=== PATIENT | female | born 2000 | race Two or more races ===

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

== ENCOUNTER 2018-02-22 19:02 | Emergency (ER) | payer BC ==
[~2018-02-22] VITALS: Ht 157.5 cm; Wt 70.8 kg
[~2018-02-22 19:02] MED LIST changes: +ONDA4TAB10 PO; +PHEN100T82 PO; +SULF1TAB24 PO
--- NOTE | 2018-02-22 19:04 | ED.ADGEN ---
Past History Past Medical History: No Pertinent History, Other Past Surgical History: No Surgical History Smoking: Non-smoker Alcohol Use: None Drug Use: None Adult General Chief Complaint Chief Complaint ". 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 but when I woke up this morning I didn't feel very well and the abdomen pain has gotten worse all day.. '" Pt HPI HPI Patient is a 17 year old female who presents with above hx and complaints abd. pain. Her brother got sick from eating the sushi on Wednesday. Patient states the pain is somewhat generalized. Nothing makes it better. Has been nauseated all day. No active vomiting or diarrhea. Patient denies any specific trauma other than lifting. Patient has been gravid 1 term 1. No recent travel. No history immunosuppression. Normally follows with Dr. Soto. Patient currently rates her pain as 5 out of 10. Review of Systems Review of Systems Constitutional: Denies fever or chills [] Eyes: Denies change in visual acuity, redness, or eye pain [] HENT: Denies nasal congestion or sore throat [] Respiratory: Denies cough or shortness of breath [] Cardiovascular: No additional information not addressed in HPI [] GI: Complaints of abdominal pain, nausea,. vomiting, bloody stools or diarrhea [ ] : Denies dysuria or hematuria [] Musculoskeletal: Denies back pain or joint pain [] Integument: Denies rash or skin lesions [] Neurologic: Denies headache, focal weakness or sensory changes [] Endocrine: Denies polyuria or polydipsia [] All other systems were reviewed and found to be within normal limits, except as documented in this note. Family History Family History Brother got sick after eating sushi on Wednesday Current Medications Current Medications Current Medications Medications (Trade) Dose Ordered Sig/Daisy Start Time Stop Time Status Last Admin Dose Admin Famotidine (Pepcid Vial) 20 mg 1X ONCE 02/22/18 19:30 02/22/18 19:31 DC 02/22/18 19:43 20 MG Ketorolac Tromethamine (Toradol 30mg Vial) 30 mg 1X ONCE 02/22/18 19:45 02/22/18 19:46 DC Lactated Ringer's 1,000 ml @ 1,000 mls/hr Q1H 02/22/18 19:13 02/22/18 20:12 DC 02/22/18 19:43 1,000 MLS/HR Ondansetron HCl (Zofran) 8 mg 1X ONCE 02/22/18 19:30 02/22/18 19:31 DC 02/22/18 19:44 8 MG See nursing for home meds Allergies Allergies Allergies Coded Allergies Type Severity Reaction Last Updated Verified codeine Allergy Intermediate 02/22/18 Yes latex Allergy Intermediate 02/22/18 Yes Physical Exam Physical Exam Constitutional: Well developed, well nourished,in acute distress, rnon-toxic appearance. [] HENT: Normocephalic, atraumatic, bilateral external ears normal, oropharynx moist, no oral exudates, nose normal. [] Eyes: PERRLA, EOMI, conjunctiva normal, no discharge. [] Neck: Normal range of motion, no tenderness, supple, no stridor. [] Cardiovascular:Heart rate regular rhythm, no murmur [] Lungs & Thorax: Bilateral breath sounds clear to auscultation [] Abdomen: Bowel sounds hyperactive, soft, and generalized tenderness, no masses, no pulsatile masses. [] No true rebound Skin: Warm, dry, no erythema, no rash. [] Back: No tenderness, no CVA tenderness. [] Extremities: No tenderness, no cyanosis, no clubbing, ROM intact, no edema. [] No true psoas or obturator sign. Neurologic: Alert and oriented X 3, normal motor function, normal sensory function, no focal deficits noted. [] Psychologic: Affect normal, judgement normal, mood normal. [] Current Patient Data Vital Signs Vital Signs Date Time Temp Pulse Resp B/P (MAP) Pulse Ox O2 Delivery O2 Flow Rate FiO2 02/22/18 22:10 79 18 154/91 (112) 99 Room Air 02/22/18 19:05 98.6 Lab Results Laboratory Tests Test 02/22/18 19:05 02/22/18 19:25 02/22/18 19:30 02/22/18 20:03 Urine Collection Type Unknown Urine Color Yellow Urine Clarity Clear Urine pH 7.5 Urine Specific [place] 1.020 Urine Protein Neg (NEG-TRACE) Urine Glucose (UA) Neg mg/dL (NEG) Urine Ketones (Stick) Neg mg/dL (NEG) Urine Blood Neg (NEG) Urine Nitrite Neg (NEG) Urine Bilirubin Neg (NEG) Urine Urobilinogen Dipstick 0.2 mg/dL (0.2 mg/dL) Urine Leukocyte Esterase Neg (NEG) Urine RBC Occ /HPF (0-2) Urine WBC Occ /HPF (0-4) Urine Squamous Epithelial Cells Few /LPF Urine Amorphous Sediment Present /HPF Urine Bacteria 0 /HPF (0-FEW) Urine Mucus Slight /LPF Urine Opiates Screen Neg (NEG) Urine Methadone Screen Neg (NEG) Urine Barbiturates Neg (NEG) Urine Phencyclidine Screen Neg (NEG) Urine Amphetamine/Methamphetamine Neg (NEG) Urine Benzodiazepines Screen Neg (NEG) Urine Cocaine Screen Neg (NEG) Urine Cannabinoids Screen Neg (NEG) Urine Ethyl Alcohol Neg (NEG) POC Urine HCG, Qualitative hcg negative (Negative) White Blood Count 6.0 x10^3/uL (4.0-11.0) Red Blood Count 4.59 x10^6/uL (3.50-5.40) Hemoglobin 12.9 g/dL (12.0-15.5) Hematocrit 39.7 % (36.0-47.0) Mean Corpuscular Volume 86 fL (79-100) Mean Corpuscular Hemoglobin 28 pg (25-35) Mean Corpuscular Hemoglobin Concent 33 g/dL (31-37) Red Cell Distribution Width 17.4 % (11.5-14.5) H Platelet Count 327 x10^3/uL (140-400) Neutrophils (%) (Auto) 58 % (31-73) Lymphocytes (%) (Auto) 33 % (24-48) Monocytes (%) (Auto) 7 % (0-9) Eosinophils (%) (Auto) 1 % (0-3) Basophils (%) (Auto) 1 % (0-3) Neutrophils # (Auto) 3.5 x10^3uL (1.8-7.7) Lymphocytes # (Auto) 2.0 x10^3/uL (1.0-4.8) Monocytes # (Auto) 0.4 x10^3/uL (0.0-1.1) Eosinophils # (Auto) 0.1 x10^3/uL (0.0-0.7) Basophils # (Auto) 0.1 x10^3/uL (0.0-0.2) Prothrombin Time 10.4 SEC (9.4-11.4) Prothrombin Time INR 1.0 (0.9-1.1) PTT 27 SEC (23-33) Sodium Level 139 mmol/L (136-145) Potassium Level 3.7 mmol/L (3.5-5.1) Chloride Level 106 mmol/L (98-107) Carbon Dioxide Level 27 mmol/L (21-32) Anion Gap 6 (6-14) Blood Urea Nitrogen 6 mg/dL (7-20) L Creatinine 0.6 mg/dL (0.6-1.0) Estimated GFR (Cockcroft-Gault) 128.8 Glucose Level 97 mg/dL (70-99) Calcium Level 9.1 mg/dL (8.5-10.1) Total Bilirubin 0.3 mg/dL (0.2-1.0) Direct Bilirubin 0.1 mg/dL (0.0-0.2) Aspartate Amino Transferase (AST) 11 U/L (15-37) L Alanine Aminotransferase (ALT) 16 U/L (14-59) Alkaline Phosphatase 63 U/L (46-116) Total Protein 7.0 g/dL (6.4-8.2) Albumin 3.6 g/dL (3.4-5.0) Amylase Level 61 U/L (25-115) Lipase 100 U/L (73-393) EKG EKG [] Radiology/Procedures Radiology/Procedures My interpretation of abdomen film shows no acute cardiopulmonary findings on chest portion. No free air under the diaphragm. Nonobstructive bowel gas pattern..[] Course & Med Decision Making Course & Med Decision Making Pertinent Labs and Imaging studies reviewed. (See chart for details). Today on a clear fluid diet only for the next 2 days. No solids. No milk products. Must allow bowel rest. May take Tylenol and ibuprofen for discomfort. May take Zofran 8 mg up 4 times a day for nausea and vomiting. Follow-up primary care. Any localized symptoms must return for reexam. Return if any concerns. Follow-up primary care. [] Final Impression Final Impression 1. Abdomen pain[] 2. Possible food poisoning- by history Dragon Disclaimer Dragon Disclaimer This electronic medical record was generated, in whole or in part, using a voice recognition dictation system. NEEL SALAZAR MD Feb 22, 2018 19:04
[2018-02-22] MEDS ORDERED: IV RINGERS SOLUTION,LACTATED 1,000 ML IV SCH (19:13)
[2018-02-22] MEDS ORDERED: FAMOTIDINE 20 MG/2 ML VIAL IVP ONE (19:30)
[2018-02-22] MEDS ORDERED: ONDANSETRON PF 4 MG/2 ML VIAL. IV ONE (19:30)
[2018-02-22] MEDS ORDERED: KETOROLAC 30 MG/ML VIAL. IV ONE (19:45)
[2018-02-22 19:48] LABS: BASO # 0.1 x10^3/uL (0.0-0.2); BASO % 1 % (0-3); EOS # 0.1 x10^3/uL (0.0-0.7); EOS % 1 % (0-3); HEMATOCRIT 39.7 % (36.0-47.0); HEMOGLOBIN 12.9 g/dL (12.0-15.5); LYMPH % 33 % (24-48); MEAN CORPUSCULAR HEMOGLOBIN 28 pg (25-35); MEAN CORPUSCULAR HGB CONC 33 g/dL (31-37); MEAN CORPUSCULAR VOLUME 86 fL (79-100); MONO # 0.4 x10^3/uL (0.0-1.1); MONO % 7 % (0-9); NEUT # 3.5 x10^3uL (1.8-7.7); NEUT % 58 % (31-73); PLATELET COUNT 327 x10^3/uL (140-400); RED BLOOD COUNT 4.59 x10^6/uL (3.50-5.40); RED CELL DISTRIBUTION WIDTH 17.4 % (11.5-14.5)
[2018-02-22 19:54] LABS: AMPHETAMINE/METHAMPHETAMINE NEG (NEG); BARBITURATES NEG (NEG); BENZODIAZEPINES NEG (NEG); CANNABINOIDS NEG (NEG); COCAINE NEG (NEG); METHADONE NEG (NEG); OPIATES NEG (NEG); PHENCYCLIDINE NEG (NEG)
[2018-02-22 19:55] LABS: BILIRUBIN,URINE NEG (NEG); CLARITY,URINE CLEAR; COLOR,URINE YELLOW; GLUCOSE,URINE NEG (NEG)
[2018-02-22 19:56] LABS: AMORPHOUS SEDIMENT,UR PRESENT /HPF; BACTERIA,URINE 0 /HPF (0-FEW); NITRITE,URINE NEG (NEG); RBC,URINE OCC /HPF (0-2); SQUAMOUS EPITHELIAL CELL,UR FEW /LPF; UROBILINOGEN,URINE 0.2 mg/dL (0.2 mg/dL); WBC,URINE OCC /HPF (0-4)
[2018-02-22 20:32] LABS: ALBUMIN 3.6 g/dL (3.4-5.0); CALCIUM 9.1 mg/dL (8.5-10.1); CREATININE 0.6 mg/dL (0.6-1.0); DIRECT BILIRUBIN 0.1 mg/dL (0.0-0.2); GFR 128.8; POTASSIUM 3.7 mmol/L (3.5-5.1); TOTAL BILIRUBIN 0.3 mg/dL (0.2-1.0)
[2018-02-22] MEDS ORDERED: ONDA8TAB12 PO (21:44)
[2018-02-22 22:10] VITALS: BP 154/91
--- NOTE | 2018-02-22 22:47 | RAD ---
Acute abdominal series to include a PA chest radiograph 02/22/2018 Clinical History: Left-sided abdominal pain. A PA digital radiograph of the chest was obtained. Supine and erect AP digital radiographs of the abdomen/pelvis were obtained. Comparison is made to a CT scan of the abdomen and pelvis dated 01/18/2017. The cardiac and mediastinal silhouettes are within normal limits in size and configuration. No pulmonary infiltrate is seen. No pleural effusion or pneumothorax is noted. The abdominal bowel gas pattern is nonobstructive. There is no evidence of free air. No radiopaque calculus is seen. The osseous structures are grossly intact. Impression: Negative study. Electronically signed by: Ricky Massey MD (02/22/2018 10:42 PM) [facility]
== END 2018-02-22 22:25 | disposition home or self-care (01) ==
LOC: ER 19:02
DX: R10.84 Generalized abdominal pain (principal); R11.2 Nausea with vomiting, unspecified; Z88.5 Allergy status to narcotic agent; Z91.040 Latex allergy status
CPT/HCPCS: 36415; 74022; 80048; 80076; 80307; 81001; 81025; 82150; 83690; 85025; 85610; 85730; 96361; 96374; 96375; 99285; J2405; J7120; S0028; G0479

== ENCOUNTER 2019-04-12 03:07 | Emergency (ER) | payer BC ==
[~2019-04-12] VITALS: Ht 157.5 cm; Wt 56.7 kg
[~2019-04-12 03:07] MED LIST changes: +ONDA8TAB12 PO
[2019-04-12] MEDS ORDERED: ONDANSETRON PF 4 MG/2 ML VIAL. IVP ONE ×2 (03:30→04:00)
[2019-04-12] MEDS ORDERED: IV NORMAL SALINE 1,000ML 1,000 ML IV ONE ×4 (03:45→06:30)
[2019-04-12] MEDS ORDERED: FAMOTIDINE 20 MG/2 ML VIAL IVP ONE (04:00)
[2019-04-12 04:02] LABS: BASO % 0 % (0-3); EOS % 0 % (0-3); HEMATOCRIT 41.2 % (36.0-47.0); HEMOGLOBIN 13.6 g/dL (12.0-15.5); LYMPH # 0.7 x10^3/uL (1.0-4.8); LYMPH % 6 % (24-48); MEAN CORPUSCULAR HEMOGLOBIN 30 pg (25-35); MEAN CORPUSCULAR HGB CONC 33 g/dL (31-37); MEAN CORPUSCULAR VOLUME 90 fL (79-100); MONO # 0.3 x10^3/uL (0.0-1.1); MONO % 2 % (0-9); NEUT # 11.8 x10^3uL (1.8-7.7); NEUT % 92 % (31-73); PLATELET COUNT 296 x10^3/uL (140-400); RED BLOOD COUNT 4.59 x10^6/uL (3.50-5.40); RED CELL DISTRIBUTION WIDTH 14.3 % (11.5-14.5); WHITE BLOOD COUNT 12.9 x10^3/uL (4.0-11.0)
[2019-04-12 04:19] LABS: ALBUMIN 3.8 g/dL (3.4-5.0); ALBUMIN/GLOBULIN RATIO 0.8 (1.0-1.7); CREATININE 0.8 mg/dL (0.6-1.0); GFR 90.5; POTASSIUM 3.2 mmol/L (3.5-5.1); TOTAL BILIRUBIN 0.5 mg/dL (0.2-1.0); TOTAL PROTEIN 8.4 g/dL (6.4-8.2)
[2019-04-12] MEDS ORDERED: METOCLOPRAMIDE HCL 10 MG/2 ML VIAL. IVP ONE (05:15)
--- NOTE | 2019-04-12 05:26 | PHYS DOC ---
Past History Past Medical History: No Pertinent History, Other Past Surgical History: No Surgical History Smoking: Non-smoker Alcohol Use: None Drug Use: None Adult General Chief Complaint Chief Complaint: VOMITING IN HPI HPI Patient is a 21 G2, P1 and esterase 11 weeks gestation female who presents with intermittent daily emesis 3 days with inability to tolerate oral intake despite Phenergan suppositories and Zofran. Reports 15 pound weight loss since onset of . Patient reports diffuse epigastric pain worse with vomiting. No hematemesis coffee-ground emesis or bilious emesis. No other acute symptoms or complaints. Patient has plans to establish with Dr. Kapoor for the current [] Review of Systems Review of Systems Review symptoms as per history of present illness. All other systems were reviewed and found to be within normal limits, except as documented in this note. Current Medications Current Medications Current Medications Medications (Trade) Dose Ordered Sig/Daisy Start Time Stop Time Status Last Admin Dose Admin Famotidine (Pepcid Vial) 20 mg 1X ONCE 04/12/19 04:00 04/12/19 04:38 DC 04/12/19 04:00 20 MG Metoclopramide HCl (Reglan Vial) 10 mg 1X ONCE 04/12/19 05:15 04/12/19 05:16 UNV Ondansetron HCl (Zofran) 4 mg 1X ONCE 04/12/19 04:00 04/12/19 04:38 DC Sodium Chloride 1,000 ml @ 1,000 mls/hr 1X ONCE 04/12/19 04:00 04/12/19 04:59 DC 04/12/19 04:00 1,000 MLS/HR Allergies Allergies Allergies Coded Allergies Type Severity Reaction Last Updated Verified codeine Allergy Intermediate 02/22/18 Yes latex Allergy Intermediate 02/22/18 Yes Physical Exam Physical Exam Constitutional: Well developed, well nourished, no acute distress. [] HENT: Normocephalic, atraumatic, bilateral external ears normal, oropharynx moist, no oral exudates, nose normal. [] Eyes: PERRLA, EOMI, conjunctiva normal, no discharge. [] Neck: Normal range of motion, no tenderness.. [] Cardiovascular:Heart rate regular rhythm, no murmur [] Lungs & Thorax: Bilateral breath sounds clear to auscultation [] Abdomen: Bowel sounds normal, soft, epigastric pain/tenderness.[] Skin: Warm, dry, no erythema, no rash. [] Back: No tenderness, no CVA tenderness. [] Extremities: No tenderness, no cyanosis, no clubbing, ROM intact. [] Neurologic: Alert and oriented X 3, normal motor function, normal sensory function, no focal deficits noted. [] Psychologic: Affect normal, judgement normal, mood normal. [] Current Patient Data Lab Results Laboratory Tests Test 04/12/19 03:25 White Blood Count 12.9 x10^3/uL (4.0-11.0) H Red Blood Count 4.59 x10^6/uL (3.50-5.40) Hemoglobin 13.6 g/dL (12.0-15.5) Hematocrit 41.2 % (36.0-47.0) Mean Corpuscular Volume 90 fL (79-100) Mean Corpuscular Hemoglobin 30 pg (25-35) Mean Corpuscular Hemoglobin Concent 33 g/dL (31-37) Red Cell Distribution Width 14.3 % (11.5-14.5) Platelet Count 296 x10^3/uL (140-400) Neutrophils (%) (Auto) 92 % (31-73) H Lymphocytes (%) (Auto) 6 % (24-48) L Monocytes (%) (Auto) 2 % (0-9) Eosinophils (%) (Auto) 0 % (0-3) Basophils (%) (Auto) 0 % (0-3) Neutrophils # (Auto) 11.8 x10^3uL (1.8-7.7) H Lymphocytes # (Auto) 0.7 x10^3/uL (1.0-4.8) L Monocytes # (Auto) 0.3 x10^3/uL (0.0-1.1) Eosinophils # (Auto) 0.0 x10^3/uL (0.0-0.7) Basophils # (Auto) 0.0 x10^3/uL (0.0-0.2) Sodium Level 139 mmol/L (136-145) Potassium Level 3.2 mmol/L (3.5-5.1) L Chloride Level 101 mmol/L (98-107) Carbon Dioxide Level 20 mmol/L (21-32) L Anion Gap 18 (6-14) H Blood Urea Nitrogen 10 mg/dL (7-20) Creatinine 0.8 mg/dL (0.6-1.0) Estimated GFR (Cockcroft-Gault) 90.5 BUN/Creatinine Ratio 13 (6-20) Glucose Level 177 mg/dL (70-99) H Calcium Level 10.0 mg/dL (8.5-10.1) Total Bilirubin 0.5 mg/dL (0.2-1.0) Aspartate Amino Transferase (AST) 20 U/L (15-37) Alanine Aminotransferase (ALT) 20 U/L (14-59) Alkaline Phosphatase 48 U/L (46-116) Total Protein 8.4 g/dL (6.4-8.2) H Albumin 3.8 g/dL (3.4-5.0) Albumin/Globulin Ratio 0.8 (1.0-1.7) L Lipase 58 U/L (73-393) L EKG EKG [] Radiology/Procedures Radiology/Procedures [] Course & Med Decision Making Course & Med Decision Making Pertinent Labs and Imaging studies reviewed. (See chart for details) [Multiple units of IV fluids, Dilaudid, Benadryl and Zofran without relief of symptoms. Patient remains tachycardic with acidosis on chemistry and hypokalemia. [facility] transfer [facility] Dragon Disclaimer Dragon Disclaimer This electronic medical record was generated, in whole or in part, using a voice recognition dictation system. Departure Departure: Impression: Primary Impression: Hyperemesis gravidarum Disposition: 02 XFER SHT-TRM HOSP Condition: STABLE Referrals: RABIA MICHAEL DO (PCP) JANNETTE HICKS DO Apr 12, 2019 05:25
[2019-04-12] MEDS ORDERED: diphenhydrAMINE 50 MG/ML VIAL IVP ONE (05:30)
[2019-04-12] MEDS ORDERED: IV DEXTROSE 5% - 0.9 % NACL 1,000 ML IV ONE (06:00)
[2019-04-12 07:18] LABS: BACTERIA,URINE FEW /HPF (0-FEW); BILIRUBIN,URINE NEG (NEG); CLARITY,URINE HAZY; COLOR,URINE YELLOW; GLUCOSE,URINE 500 mg/dL (NEG); NITRITE,URINE NEG (NEG); SQUAMOUS EPITHELIAL CELL,UR FEW /LPF; UROBILINOGEN,URINE 0.2 mg/dL (0.2 mg/dL)
[2019-04-12 07:28] VITALS: BP 114/72
== END 2019-04-12 08:05 | disposition short-term general hospital (02) ==
LOC: ER 03:07
DX: O21.0 Mild hyperemesis gravidarum (principal); Z3A.11 11 weeks gestation of pregnancy; Z88.5 Allergy status to narcotic agent; Z91.040 Latex allergy status
CPT/HCPCS: 36415; 80053; 81001; 83690; 85025; 96361; 96374; 96375; 99285; J1200; J2405; J2765; J3490; J7042; J7030

== ENCOUNTER → 2019-06-19 | Outpatient (CLI) | payer BC ==
--- NOTE | 2019-06-19 17:10 | RAD ---
EXAM: OBSTETRIC ULTRASOUND. HISTORY: Size/date discrepancy. COMPARISON: None. FINDINGS: Sonographic evaluation of the uterus, fetus and maternal pelvis was performed. There is a single fetus in vertex presentation. heart rate is 128 bpm. Estimated gestational age based on measurements is 21 weeks 0 days. Head circumference, biparietal diameter, abdominal circumference and femur length are commensurate. Estimated weight is 399 g, at 11 percentile. The placenta is posterior. There is no evidence of placenta previa. Amniotic fluid volume appears normal with amniotic fluid index 15.2 cm. The cervix is closed and measures at least 4 cm. There is no evidence of hydrocephalus. The posterior fossa is unremarkable. The nasal bone appears normal. The heart is four-chamber. The right and left ventricular outflow tracts are visualized. The cord insertion appears normal. Images of the kidneys reveal no hydronephrosis. The stomach and bladder are visualized. The cord is three-vessel. The extremities are unremarkable. Nose/lip morphology appears normal. The spine is not well visualized given position. No clear defects are seen. The maternal adnexa are obscured by positioning currently. IMPRESSION: 1. Single fetus in vertex presentation. heart rate 128 bpm. Estimated gestational age based on measurements 21 weeks 0 days. 2. The spine is not well visualized given position currently. No clear anomalies are seen. Electronically signed by: Cathy Lacey MD (06/19/2019 5:07 PM) [facility]
== END | disposition home or self-care (01) ==
LOC: US 11:14
PROVIDERS: ATTEND Obstetrics & Gynecology
DX: O26.842 Uterine size-date discrepancy, second trimester (principal); Z3A.21 21 weeks gestation of pregnancy
CPT/HCPCS: 76805

== ENCOUNTER 2021-05-21 14:00 | Emergency (ER) | payer OTHER ==
[~2021-05-21] VITALS: Ht 154.9 cm; Wt 64.3 kg
--- NOTE | 2021-05-21 15:19 | PHYS DOC ---
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 Patient is complaining of nausea and vomiting in that has been going on for a couple days. She is not specific on how many days. She states yesterday she vo mited hard and ruptured her right eardrum. She states she was seen at [facility] where they did not do anything for her but they started on amoxicillin and gave her promethazine per rectum. She states she has used the promethazine today but has been unable to take her amoxicillin. She is requesting some IV fluids, IV nausea medicine and IV antibiotics for her ear infection. Denies any abdominal pain. Denies any vaginal bleeding. She states she used to see MANAGER CONTRACT and but he is currently not taking any OB patient, he is only taking TECHNICAL SYSTEMS ARCHITECT patients. She states she has moderate pain to the right ear worse on vomiting. She states she has history of hyperemesis gravidarum and eventually ending up with a "pump" for nausea and vomiting (SHANTAL GARRISON PRESS OPERATOR HELPER) Review of Systems Review of Systems Constitutional: Denies fever or chills [] Eyes: Denies change in visual acuity, redness, or eye pain [] HENT: Reports right ear pain denies nasal congestion or sore throat [] Respiratory: Denies cough or shortness of breath [] Cardiovascular: No additional information not addressed in HPI [] GI: Reports nausea and vomiting denies abdominal pain, bloody stools or diarrhea [] : Denies dysuria or hematuria [] Musculoskeletal: Denies back pain or joint pain [] Integument: Denies rash or skin lesions [] Neurologic: Denies headache, focal weakness or sensory changes [] All other systems were reviewed and found to be within normal limits, except as documented in this note. (SHANTAL GARRISON PRESS OPERATOR HELPER) Current Medications Current Medications Current Medications Medications (Trade) Dose Ordered Sig/Daisy Start Time Stop Time Status Last Admin Dose Admin Ceftriaxone Sodium 1 gm/ Sodium Chloride 50 ml @ 100 mls/hr 1X ONCE 05/21/21 15:30 05/21/21 15:59 Metoclopramide HCl (Reglan Vial) 10 mg 1X ONCE 05/21/21 15:30 05/21/21 15:11 DC Ondansetron HCl (Zofran) 4 mg 1X ONCE 05/21/21 15:45 05/21/21 15:46 Sodium Chloride 1,000 ml @ 1,000 mls/hr 1X ONCE 05/21/21 15:30 05/21/21 16:29 (SHANTAL GARRISON PRESS OPERATOR HELPER) Allergies Allergies Allergies Coded Allergies Type Severity Reaction Last Updated Verified codeine Allergy Intermediate 02/22/18 Yes latex Allergy Intermediate 02/22/18 Yes (SHANTAL GARRISON PRESS OPERATOR HELPER) Physical Exam Physical Exam Constitutional: Well developed, well nourished, no acute distress, non-toxic appearance. [] HENT: Normocephalic, atraumatic, bilateral external ears normal, oropharynx moist, no oral exudates, nose normal. [] Right TM not well visualized, patient is uncomfortable due to pain. Eyes: PERRLA, EOMI, conjunctiva normal, no discharge. [] Neck: Normal range of motion, no tenderness, supple, no stridor. [] Cardiovascular:Heart rate regular rhythm, no murmur [] Lungs & Thorax: Bilateral breath sounds clear to auscultation [] Abdomen: Dry heaving. Bowel sounds normal, soft, no tenderness, no masses, no pulsatile masses. [] Skin: Warm, dry, no erythema, no rash. [] Back: No tenderness, no CVA tenderness. [] Extremities: No tenderness, no cyanosis, no clubbing, ROM intact, no edema. [] Neurologic: Alert and oriented X 3, normal motor function, normal sensory function, no focal deficits noted. [] Psychologic: Affect normal, judgement normal, mood normal. [] (SHANTAL GARRISON PRESS OPERATOR HELPER) Current Patient Data Vital Signs Vital Signs Date Time Temp Pulse Resp B/P (MAP) Pulse Ox O2 Delivery O2 Flow Rate FiO2 05/21/21 14:30 98.6 85 20 139/71 (93) 99 Room Air (SHANTAL GARRISON PRESS OPERATOR HELPER) EKG EKG [] (SHANTAL GARRISON APRN) Radiology/Procedures Radiology/Procedures [] (SHANTAL GARRISON APRN) Heart Score C/O Chest Pain: N/A Risk Factors: Risk Factors: DM, Current or recent (<one month) smoker, HTN, HLP, family history of CAD, obesity. Risk Scores: Risk Factors: DM, Current or recent (<one month) smoker, HTN, HLP, family history of CAD, obesity. (SHANTAL GARRISON APRN) Course & Med Decision Making Course & Med Decision Making Pertinent Labs and Imaging studies reviewed. (See chart for details) This 21-year-old female patient 3 Para 2 currently 11 weeks presenting to the ED today complaining of nausea and vomiting in . Also complaining of right eardrum rupture that occurred yesterday while vomiting. She was seen at [facility] and started on amoxicillin which she states she is unable to keep down. Vitals on arrival to the ED temperature 98.6, heart rate 85, respiration 20 on room air, blood pressure 139/71 which came down to 125/70 with IV fluids. O2 sats 99% on room air. CBC with a WBC of 11.8, hemoglobin hematocrit are normal, CMP with no acute findings. Urine positive for UTI Beta hCG 171,360 Patient was given IV fluids in the ED, Rocephin IV and Zofran. She is already on amoxicillin, encourage her to complete the medication. Encourage her to follow-up with an MANAGER CONTRACT. She already has promethazine and Zofran at home. (SHANTAL GARRISON APRN) Dragon Disclaimer Dragon Disclaimer This electronic medical record was generated, in whole or in part, using a voice recognition dictation system. (SHANTAL GARRISON APRN) Attending Co-Sign The patient was seen and interviewed as well as examined at the bedside. The chart was reviewed. The case was discussed. Agree with the plan of care. (JANNETTE CLEMENTS DO) Departure Departure: Impression: Primary Impression: Hyperemesis gravidarum Additional Impression: Urinary tract infection Disposition: HOME / SELF CARE / HOMELESS Condition: STABLE Referrals: AUGUSTINA RENTERIA (PCP) SCOTT MURRAY MD follow up next week Patient Instructions: Diet - Hyperemesis Gravidarum, - Urinary Tract Infection Additional Instructions: You were evaluated in the emergency room, you have urinary tract infection as well as a hyperemesis gravidarum and a ruptured eardrum. Please complete the amoxicillin you got from [facility]. Please take Tylenol as needed for pain. You can take the Zofran you have on promethazine for vomiting. Follow-up with your MANAGER CONTRACT as soon as possible Scripts Amoxicillin (AMOXICILLIN) 875 Mg Tablet 1 TAB PO BID, #14 TAB Prov: SHANTAL GARRISON APRN 05/22/21 Problem Qualifiers Additional Impression: Urinary tract infection Urinary tract infection type: acute cystitis Hematuria presence: without hematuria Qualified Codes: N30.00 - Acute cystitis without hematuria SHANTAL GARRISON APRN May 21, 2021 15:19 JANNETTE CLEMENTS DO May 23, 2021 06:10
[2021-05-21] MEDS ORDERED: IV NORMAL SALINE 50ML 50 ML ONE (15:23)
[2021-05-21] MEDS ORDERED: cefTRIAXone SODIUM 1 GM VIAL ONE (15:23)
[2021-05-21] MEDS ORDERED: IV NORMAL SALINE 1,000ML 1,000 ML IV ONE (15:30)
[2021-05-21] MEDS ORDERED: METOCLOPRAMIDE HCL 10 MG/2 ML VIAL. IVP ONE (15:30)
[2021-05-21 15:33] VITALS: BP 125/70
[2021-05-21 15:42] LABS: BASO % 0 % (0-3); EOS % 0 % (0-3); HEMATOCRIT 36.4 % (36.0-47.0); HEMOGLOBIN 12.2 g/dL (12.0-15.5); LYMPH # 1.8 x10^3/uL (1.0-4.8); LYMPH % 16 % (24-48); MEAN CORPUSCULAR HEMOGLOBIN 31 pg (25-35); MEAN CORPUSCULAR HGB CONC 34 g/dL (31-37); MEAN CORPUSCULAR VOLUME 92 fL (79-100); MONO # 0.7 x10^3/uL (0.0-1.1); MONO % 6 % (0-9); NEUT # 9.3 x10^3uL (1.8-7.7); NEUT % 78 % (31-73); PLATELET COUNT 342 x10^3/uL (140-400); RED BLOOD COUNT 3.97 x10^6/uL (3.50-5.40); RED CELL DISTRIBUTION WIDTH 14.1 % (11.5-14.5); WHITE BLOOD COUNT 11.8 x10^3/uL (4.0-11.0)
[2021-05-21] MEDS ORDERED: ONDANSETRON PF 4 MG/2 ML VIAL. IVP ONE (15:45)
[2021-05-21 15:50] LABS: BARBITURATES NEG (NEG); BENZODIAZEPINES NEG (NEG); CANNABINOIDS NEG (NEG); COCAINE NEG (NEG); METHADONE NEG (NEG); OPIATES NEG (NEG); PHENCYCLIDINE NEG (NEG)
[2021-05-21 15:51] LABS: AMPHETAMINE/METHAMPHETAMINE NEG (NEG)
[2021-05-21 15:56] LABS: CALCIUM 9.2 mg/dL (8.5-10.1); CREATININE 0.6 mg/dL (0.6-1.0); GFR 123.9; POTASSIUM 3.7 mmol/L (3.5-5.1)
[2021-05-21 16:04] LABS: ALBUMIN 3.3 g/dL (3.4-5.0); ALBUMIN/GLOBULIN RATIO 0.8 (1.0-1.7); TOTAL BILIRUBIN 0.4 mg/dL (0.2-1.0); TOTAL PROTEIN 7.5 g/dL (6.4-8.2)
[2021-05-21 16:19] LABS: BILIRUBIN,URINE MOD (NEG); CLARITY,URINE CLOUDY; COLOR,URINE YELLOW; GLUCOSE,URINE NEG (NEG); NITRITE,URINE POS (NEG)
[2021-05-21 16:20] LABS: BACTERIA,URINE MANY /HPF (0-FEW); SQUAMOUS EPITHELIAL CELL,UR MANY /LPF
[2021-05-22] MEDS ORDERED: AMOX875T PO (19:37)
== END 2021-05-21 16:40 | disposition home or self-care (01) ==
LOC: ER 14:00
DX: O21.0 Mild hyperemesis gravidarum (principal); O23.41 Unspecified infection of urinary tract in pregnancy, first trimester; N39.0 Urinary tract infection, site not specified; Z3A.11 11 weeks gestation of pregnancy; Z88.5 Allergy status to narcotic agent; Z91.040 Latex allergy status
CPT/HCPCS: 36415; 80053; 80307; 81001; 84702; 85025; 87086; 96365; 96375; 99284; G0480; J0696; J2405; J7030